=== PATIENT | female | born 1970 | race Caucasian/White ===

== ENCOUNTER → 2017-11-14 | Outpatient (REF) | payer OTHER ==
[~2017-11-14] MED LIST: AUGMENTIN875TAB PO; DOXYCYC MONO100 M1 PO; ELIMITE5 % EX; FLEXERIL OR; FLEXERIL PO; LORTAB5 OR; MEDDOSEPAK PO; NAPROSYN500 MG OR; NAPROSYN500 MG PO; TET/DIP TOX1 ML IM; TRAMADOL HCL50 MG OR
[2017-11-14 08:19] LABS: HEMATOCRIT 41.2 % (37.0-47.0); HEMOGLOBIN 12.8 g/dl (12.0-16.0); IMMATURE GRANULOCYTES 0.4 % (0.0-5.0); MEAN CELL VOLUME 86.2 fL CALC (80.0-100.0); MEAN CORPUSCULAR HGB 26.8 pG CALC (26.0-32.0); MEAN CORPUSCULAR HGB CONC 31.1 g/L CALC (32.0-36.0); NEUT# 4.1 thou/uL (2.00-7.15); RED BLOOD COUNT 4.78 mill/uL (4.20-5.60); RED CELL DISTRI WIDTH 14.6 % (11.5-15.5)
[2017-11-14 08:38] LABS: ALBUMIN 4.1 g/dL (3.2-5.0); ALKALINE PHOSPHATASE 106 u/l (38-126); ANION GAP 12 (6-22 (CALC)); BILIRUBIN, TOTAL 0.3 mg/dL (0.0-1.4); BUN 17 mg/dL (7-17); BUN/CREATININE RATIO 19 (12-20 (CALC)); CALCULATED LDLCHOLESTEROL 88 mg/dL (62-129 (CALC)); CARBON DIOXIDE 26 mmol/l (22-30); CHLORIDE 109 mmol/l (95-108); CHOLESTEROL HDL RATIO 3.9 (<4.4 (CALC)); CREATININE 0.9 mg/dL (0.5-1.0); GFR > 60 ML/MIN (>=60 (CALC)); GFR FOR AFR.AMER. > 60 ML/MIN (>=60 (CALC)); HDL CHOLESTEROL 42 mg/dL (>=40); POTASSIUM 4.8 mmol/l (3.5-5.1); SGOT/AST 27 u/l (14-36); SODIUM 142 mmol/l (137-146); TOTAL CHOLESTEROL 165 mg/dl (0-199); TOTAL TRIGLYCERIDES 171 mg/dl (30-149); VLDL CHOLESTROL 34 mg/dl (1-41 (CALC))
[2017-11-14 09:07] LABS: TSH, 3RD GENERATION 1.67 uIU/mL (0.47 - 4.68)
== END | disposition home or self-care (01) | DRG 639 ==
LOC: LAB 07:04
PROVIDERS: ATTEND Family Medicine
DX: E11.9 Type 2 diabetes mellitus without complications (principal); E78.5 Hyperlipidemia, unspecified; I10 Essential (primary) hypertension; R53.83 Other fatigue; E03.9 Hypothyroidism, unspecified

== ENCOUNTER 2018-08-18 12:30 | Emergency (ER) | payer OTHER ==
[~2018-08-18] VITALS: Ht 157.5 cm; Wt 98.6 kg
[2018-08-18] MEDS ORDERED: LEVOTHYROXIN75 MCG PO (12:56)
[2018-08-18] MEDS ORDERED: METFORMIN HCL500 M2 PO (12:57)
[2018-08-18 12:58] LABS: HEMOGLOBIN 12.5 g/dl (12.0-16.0); IMMATURE GRANULOCYTES 0.4 % (0.0-5.0); MEAN CELL VOLUME 83.5 fL CALC (80.0-100.0); MEAN CORPUSCULAR HGB 26.8 pG CALC (26.0-32.0); MEAN CORPUSCULAR HGB CONC 32.1 g/L CALC (32.0-36.0); NEUT# 4.79 thou/uL (2.00-7.15); RED BLOOD COUNT 4.67 mill/uL (4.20-5.60); RED CELL DISTRI WIDTH 14.7 % (11.5-15.5)
[2018-08-18 13:21] LABS: ANION GAP 13 (6-22 (CALC)); BUN 10 mg/dL (7-17); BUN/CREATININE RATIO 12 (12-20 (CALC)); CARBON DIOXIDE 24 mmol/l (22-30); CHLORIDE 108 mmol/l (95-108); CREATININE 0.9 mg/dL (0.5-1.0); GFR > 60 ML/MIN (>=60 (CALC)); GFR FOR AFR.AMER. > 60 ML/MIN (>=60 (CALC)); POTASSIUM 4.4 mmol/l (3.5-5.1); SODIUM 141 mmol/l (137-146)
[2018-08-18] MEDS ORDERED: EPIPEN 2-P0.3 MG/0.3 IM (13:53)
[2018-08-18] MEDS ORDERED: PREDNISONE50 MG PO (13:53)
[2018-08-18 18:20] VITALS: BP 118/60
== END 2018-08-18 18:20 | disposition home or self-care (01) | DRG 918 ==
LOC: ED 12:30
PROVIDERS: Family Medicine
DX: T63.461A Toxic effect of venom of wasps, accidental (unintentional), initial encounter (principal); E11.9 Type 2 diabetes mellitus without complications; Z79.84 Long term (current) use of oral hypoglycemic drugs

== ENCOUNTER 2018-09-30 04:58 | Emergency (ER) | payer OTHER ==
[~2018-09-30] VITALS: Ht 157.5 cm; Wt 96.3 kg
[~2018-09-30 04:58] MED LIST changes: +EPIPEN 2-P0.3 MG/0.3 IM; +LEVOTHYROXIN75 MCG PO; +METFORMIN HCL500 M2 PO; +PREDNISONE50 MG PO
[2018-09-30] MEDS ORDERED: BENADRYL 50MG C50 MG PO (06:08)
[2018-09-30] MEDS ORDERED: MEDDOSEPAK PO (06:08)
[2018-09-30] MEDS ORDERED: ONDANSETRON4 MG PO (06:08)
[2018-09-30 06:10] VITALS: BP 125/60
== END 2018-09-30 06:22 | disposition home or self-care (01) | DRG 916 ==
LOC: ED 04:58
DX: T78.40XA Allergy, unspecified, initial encounter (principal); E11.9 Type 2 diabetes mellitus without complications; F17.210 Nicotine dependence, cigarettes, uncomplicated; X58.XXXA Exposure to other specified factors, initial encounter; Z79.84 Long term (current) use of oral hypoglycemic drugs

== ENCOUNTER 2019-11-02 19:46 | Emergency (ER) | payer OTHER ==
[~2019-11-02] VITALS: Ht 157.5 cm; Wt 111.0 kg
[~2019-11-02 19:46] MED LIST changes: +BENADRYL 50MG C50 MG PO; +ONDANSETRON4 MG PO
[2019-11-02] MEDS ORDERED: COVARYX PO (20:43)
[2019-11-02] MEDS ORDERED: NAPROXEN500 MG PO (21:24)
[2019-11-02 21:41] VITALS: BP 134/78
== END 2019-11-02 21:41 | disposition home or self-care (01) | DRG 563 ==
LOC: ED 19:46
DX: S93.402A Sprain of unspecified ligament of left ankle, initial encounter (principal); E11.9 Type 2 diabetes mellitus without complications; F17.200 Nicotine dependence, unspecified, uncomplicated; X50.0XXA Overexertion from strenuous movement or load, initial encounter; Z79.84 Long term (current) use of oral hypoglycemic drugs

== ENCOUNTER 2019-12-10 19:18 | Emergency (ER) | payer OTHER ==
[~2019-12-10] VITALS: Ht 157.5 cm; Wt 100.0 kg
[~2019-12-10 19:18] MED LIST changes: +COVARYX PO; +NAPROXEN500 MG PO
[2019-12-10] MEDS ORDERED: CLARITIN-D1 TA2 PO (20:47)
[2019-12-10] MEDS ORDERED: TRAVATAN0.0041 OU (20:47)
[2019-12-10] MEDS ORDERED: FLONASE AL50 MCG/ACT (20:48)
[2019-12-10] MEDS ORDERED: BENADRYL 50MG C50 MG PO (21:06)
[2019-12-10 21:30] VITALS: BP 150/65
== END 2019-12-10 21:30 | disposition home or self-care (01) | DRG 607 ==
LOC: ED 19:18
DX: S50.861A Insect bite (nonvenomous) of right forearm, initial encounter (principal); E11.9 Type 2 diabetes mellitus without complications; F17.200 Nicotine dependence, unspecified, uncomplicated; W57.XXXA Bitten or stung by nonvenomous insect and other nonvenomous arthropods, initial encounter; Z79.84 Long term (current) use of oral hypoglycemic drugs

== ENCOUNTER 2019-12-15 10:03 | Emergency (ER) | payer OTHER ==
[~2019-12-15] VITALS: Ht 157.5 cm; Wt 100.0 kg
[~2019-12-15 10:03] MED LIST changes: +CLARITIN-D1 TA2 PO; +FLONASE AL50 MCG/ACT; +TRAVATAN0.0041 OU
[2019-12-15] MEDS ORDERED: NAPROXEN500 MG PO (11:26)
[2019-12-15 11:38] VITALS: BP 129/71
== END 2019-12-15 11:39 | disposition home or self-care (01) | DRG 563 ==
LOC: ED 10:03
DX: S43.402A Unspecified sprain of left shoulder joint, initial encounter (principal); S83.91XA Sprain of unspecified site of right knee, initial encounter; S80.211A Abrasion, right knee, initial encounter; E11.9 Type 2 diabetes mellitus without complications; F17.200 Nicotine dependence, unspecified, uncomplicated; W50.0XXA Accidental hit or strike by another person, initial encounter; Y92.89 Other specified places as the place of occurrence of the external cause; Y99.0 Civilian activity done for income or pay; Z79.84 Long term (current) use of oral hypoglycemic drugs

== ENCOUNTER 2020-12-01 15:53 | Emergency (ER) | payer OTHER ==
[~2020-12-01] VITALS: Ht 157.5 cm; Wt 100.0 kg
[~2020-12-01 15:53] MED LIST changes: -FLONASE AL50 MCG/ACT; +FLONASE AL50 MCG/ACT NAB; +TRAVATAN Z0.004 % OU; -TRAVATAN0.0041 OU
[2020-12-01] MEDS ORDERED: RYBELSUS3 MG PO (16:54)
[2020-12-01] MEDS ORDERED: MELOXICAM7.5 MG PO (17:07)
[2020-12-01] MEDS ORDERED: [UNRECOGNIZED DRUG - OTHER] PO (17:08)
[2020-12-01] MEDS ORDERED: REPAGLINIDE1 MG PO (17:08)
[2020-12-01] MEDS ORDERED: METFORMIN500 M2 PO ×2 (17:09→17:10)
[2020-12-01 18:05] VITALS: BP 119/74
== END 2020-12-01 18:05 | disposition home or self-care (01) | DRG 554 ==
LOC: ED 15:53
DX: M17.11 Unilateral primary osteoarthritis, right knee (principal); E11.9 Type 2 diabetes mellitus without complications; F17.200 Nicotine dependence, unspecified, uncomplicated; Z79.84 Long term (current) use of oral hypoglycemic drugs

== ENCOUNTER 2021-11-29 17:07 | Emergency (ER) | payer OTHER ==
[~2021-11-29] VITALS: Ht 157.5 cm; Wt 102.0 kg
[~2021-11-29 17:07] MED LIST changes: +MELOXICAM7.5 MG PO; +METFORMIN500 M2 PO; +REPAGLINIDE1 MG PO; +RYBELSUS3 MG PO; +[UNRECOGNIZED DRUG - OTHER] PO
[2021-11-29 17:15] VITALS: BP 120/85
[2021-11-29 18:21] VITALS: BP 120/85
== END 2021-11-29 18:24 | disposition home or self-care (01) | DRG 556 ==
LOC: ED 17:07
DX: M79.672 Pain in left foot (principal); M25.561 Pain in right knee; W01.0XXA Fall on same level from slipping, tripping and stumbling without subsequent striking against object, initial encounter

== ENCOUNTER 2023-02-03 18:11 | Emergency (ER) | payer OTHER ==
[~2023-02-03] VITALS: Ht 157.5 cm; Wt 100.0 kg
[2023-02-03 19:18] VITALS: BP 139/84
== END 2023-02-03 19:05 | disposition home or self-care (01) | DRG 301 ==
LOC: ED 18:11
DX: I83.891 Varicose veins of right lower extremity with other complications (principal); E11.9 Type 2 diabetes mellitus without complications; F17.200 Nicotine dependence, unspecified, uncomplicated